=== PATIENT | male | born 1965 | race Caucasian/White ===

== ENCOUNTER 2018-10-29 05:28 | Day surgery (SDC) | payer BC ==
[2018-10-29] MEDS ORDERED: ROPIVACAINE 0.5 % 30 ML VIAL (06:48)
[2018-10-29] MEDS ORDERED: NEOMYC/POLYMYX/BACIT 30 GM OINT (06:49)
[2018-10-29] MEDS ORDERED: morphine SULFATE/PF (10 MG/10 ML) INJ (06:49)
[2018-10-29] MEDS ORDERED: LIDOCAINE 1% (MPF) 30 ML INJ (06:50)
[2018-10-29] MEDS ORDERED: ROCURONIUM 50 MG INJ (07:00)
[2018-10-29] MEDS ORDERED: MIDAZOLAM 1 MG/ML 2 ML INJ (07:36)
[2018-10-29] MEDS ORDERED: CEFAZOLIN 1 GM INJ (08:53)
[2018-10-29] MEDS ORDERED: PROPOFOL 20 ML (08:53)
[2018-10-29] MEDS ORDERED: LIDOCAINE 2% (SDV) 5 ML INJ (08:53)
[2018-10-29] MEDS ORDERED: ONDANSETRON 4 MG INJ ×2 (08:54→09:34)
[2018-10-29] MEDS ORDERED: MEPERIDINE 25 MG INJ (09:22)
[2018-10-29] MEDS ORDERED: DIPHENHYDRAMINE 50 MG INJ IV (09:30)
[2018-10-29] MEDS ORDERED: FENTAnyl 50 MCG/ML VIAL IV (09:30)
[2018-10-29] MEDS ORDERED: METOCLOPRAMIDE 10 MG INJ IV (09:30)
[2018-10-29] MEDS ORDERED: morphine 2 MG INJ IV (09:30)
[2018-10-29] MEDS ORDERED: HYDROmorphONE 1 MG/5 ML IV SYRINGE IV (09:34)
[2018-10-29] MEDS: HYDROmorphONE 1 MG/5 ML IV SYRINGE IV ×3 (09:36→09:47)
[2018-10-29] MEDS: MEPERIDINE 25 MG INJ IV (09:37)
[2018-10-29] MEDS: ONDANSETRON 4 MG INJ IV (09:47)
== END 2018-10-29 10:46 | disposition home or self-care (01) ==
LOC: SDS 05:28
DX: S83.242A Other tear of medial meniscus, current injury, left knee, initial encounter (principal); M25.562 Pain in left knee; X58.XXXA Exposure to other specified factors, initial encounter; Y93.89 Activity, other specified; Y92.89 Other specified places as the place of occurrence of the external cause; Y99.8 Other external cause status
CPT/HCPCS: 29881